=== PATIENT | female | born 1985 | race Two or more races ===

== ENCOUNTER 2020-01-08 19:51 | Emergency (ER) | payer BC ==
[~2020-01-08] VITALS: Ht 165.1 cm; Wt 86.0 kg
[2020-01-08] MEDS ORDERED: CYCLOBENZAPRINE 10MG TABLET PO ONE (21:30)
[2020-01-08] MEDS ORDERED: KETOROLAC 30MG/ML VIAL IM ONE (21:30)
[2020-01-09] MEDS ORDERED: ACETAMINOPHEN WITH CODEINE 300/30MG TABLET PO ONE
[2020-01-09 00:31] VITALS: BP 124/85
== END 2020-01-09 00:39 | disposition home or self-care (01) ==
LOC: ER 19:51
DX: S09.8XXA Other specified injuries of head, initial encounter (principal); S16.1XXA Strain of muscle, fascia and tendon at neck level, initial encounter; S29.012A Strain of muscle and tendon of back wall of thorax, initial encounter; S80.02XA Contusion of left knee, initial encounter; V43.52XA Car driver injured in collision with other type car in traffic accident, initial encounter; Y93.89 Activity, other specified; Y92.488 Other paved roadways as the place of occurrence of the external cause
CPT/HCPCS: 71045; 72125; 72128; 73560; 81025; 96372; 99285; J1885